=== PATIENT | male | born 1995 | race Hispanic/Latino ===

== ENCOUNTER 2016-10-15 00:07 | Emergency (ER) | payer OTHER ==
--- NOTE | 2016-10-15 00:40 | ED PDOC ---
HPI: Psych/Substance Abuse Time Seen by Provider: 10/15/16 00:12 Chief Complaint (Nursing): Alcohol Ingestion Chief Complaint (Provider): Alcohol Ingestion History Per: Patient History/Exam Limitations: no limitations Suicide/Self Injury Attempted (Context): None Modifying Factor(s): Alcohol Additional Complaint(s): 21 year old male brought in by EMS presents to ED for intoxication and has no past medical history. Patient denies having any medical complaints and admits to drinking tonight. Requests to go home. PCP: BAUTISTA Past Medical History Reviewed: Historical Data, Nursing Documentation, Vital Signs Vital Signs: Last Vital Signs Temp 98.3 F 10/15/16 00:15 Pulse 124 H 10/15/16 00:15 Resp 16 10/15/16 00:15 BP 130/89 10/15/16 00:15 Pulse Ox 98 10/15/16 00:15 - Medical History PMH: No Chronic Diseases - Surgical History Surgical History: No Surg Hx - Family History Family History: States: No Known Family Hx - Social History Alcohol: Social - Allergies Allergies/Adverse Reactions: Allergies Allergy/AdvReac Type Severity Reaction Status Date / Time No Known Allergies Allergy Verified 10/15/16 00:38 Review of Systems ROS Statement: Except As Marked, All Systems Reviewed And Found Negative ( Denies all medical complaints) Physical Exam - Reviewed Nursing Documentation Reviewed: Yes Vital Signs Reviewed: Yes - Physical Exam Appears: Positive for: Non-toxic, No Acute Distress Head Exam: Positive for: ATRAUMATIC, NORMOCEPHALIC Skin: Positive for: Normal Color, Warm, Dry Eye Exam: Positive for: Normal appearance, EOMI, PERRL ENT: Positive for: Normal ENT Inspection Neck: Positive for: Normal, Painless ROM, Supple Cardiovascular/Chest: Positive for: Regular Rate, Rhythm. Negative for: Murmur Respiratory: Positive for: Normal Breath Sounds. Negative for: Respiratory Distress Gastrointestinal/Abdominal: Positive for: Normal Exam, Soft. Negative for: Tenderness Back: Negative for: Normal Inspection Extremity: Positive for: Normal ROM. Negative for: Deformity Neurologic/Psych: Positive for: Alert, Oriented, Gait (steady). Negative for: Motor/Sensory Deficits, Aphasia - ECG O2 Sat by Pulse Oximetry: 98 (RA) Pulse Ox Interpretation: Normal Medical Decision Making Medical Decision Makin Initial impression: alcohol ingestion Patient is awake, alert, and oriented x3 and is medically stable to be discharged home. No slurred speech. Patient will be walking home, as he [place]. Scribe Attestation: Documented by Ailyn Berman acting as a scribe for Cristopher Bell MD. Scribe Attestation: All medical record entries made by the Scribe were at my direction and personally dictated by me. I have reviewed the chart and agree that the record accurately reflects my personal performance of the history, physical exam, medical decision making, and the department course for this patient. I have also personally directed, reviewed, and agree with the discharge instructions and disposition. Disposition - Clinical Impression Clinical Impression: Alcohol abuse - Disposition Referrals: Alcoholics Anonymous [Outside] Disposition: Routine/Home Disposition Time: 00:41 Condition: STABLE Instructions: Alcohol Intoxication (ED)
[2016-10-15 01:38] VITALS: BP 133/74; PULSE 108; RESP 18; TEMP 98.1
[2016-10-15 21:14] VITALS: O2SAT 98
== END 2016-10-15 01:38 | disposition home or self-care (01) ==
LOC: H.ER 00:07
DX: F10.10 Alcohol abuse, uncomplicated (principal)